=== PATIENT | female | born 1995 | race Caucasian/White ===

== ENCOUNTER 2020-04-06 12:07 | Outpatient (CLI) | payer OTHER, SELFPAY ==
[2020-04-06 12:42] LABS: Basophils # 0.1 10^3/uL (0.0-0.1); Basophils % 0.5 %; Eosinophils # 0.2 10^3/uL (0.0-0.8); Eosinophils % 1.2 %; Hematocrit 40.9 % (37.0-47.0); Hemoglobin 12.6 g/dL (11.5-15.3); Lymphocytes # 2.5 10^3/uL (0.8-4.8); Lymphocytes % 20.5 %; Mean Corpuscular HGB Conc 30.8 g/dL (30.0-36.0); Mean Corpuscular Hemoglobin 27.6 pg (28.0-34.0); Mean Corpuscular Volume 89.5 fL (81-99); Mean Platelet Volume 12.3 fL (7.4-10.4); Monocytes # 0.6 10^3/uL (0.2-0.9); Monocytes % 4.7 %; Neutrophils # 8.79 10^3/uL (1.8-7.7); Neutrophils % 72.9 %; Nucleated Red Blood Cells % 0 %; Platelet Count 145 10^3/cmm (130-400); Red Blood Count 4.57 10^6/uL (4.1-5.3); Red Cell Distribution Width 13.1 % (12.1-15.1); White Blood Count 12.1 10^3/uL (4.0-10.0)
[2020-04-06 13:09] LABS: Alanine Aminotransferase 9 U/L (0-33); Albumin Level 4.2 g/dL (3.5-5.2); Alkaline Phosphatase 65 IU/L (35-105); Anion Gap 15.7 (5-19); Aspartate Amino Transferase 13 U/L (0-32); Blood Urea Nitrogen 6 mg/dL (6-20); Calcium 8.7 mg/dL (8.5-10.5); Carbon Dioxide 25 mmol/L (22-29); Chloride 103 mmol/L (98-107); Globulin 3.4 g/dL (1.3-4.6); Glomerular Filtration Rate 122.8 mL/min (90-130); Glucose 90 mg/dL (65-115); Osmolality Calculated 285 mOsm/kg (285-295); Potassium 3.7 mmol/L (3.5-5.1); Sodium 140 mmol/L (136-145); Total Bilirubin 0.2 mg/dL (0.15-1.2); Total Protein 7.6 g/dL (6.6-8.7)
--- NOTE | 2020-04-06 14:00 | CT_ITS ---
WS: [id number] CT PARANASAL SINUSES HISTORY: CHRONIC SINUSITIS TECHNIQUE: Contiguous 2.5 mm axial images obtained through the sinuses. Images are reconstructed in s agittal and coronal planes. All CT scans at [facility] use at least one of these dose opt imization techniques: automated exposure control; mA and/or kV adjustment per patient size (includes targeted exams where dose is matched to clinical indication); or iterative reconstruction. DLP: 713.57 mGy.cm COMPARISON: None available. Frontal sinuses: Normal. Sphenoid sinus: Normal. Ethmoid sinuses: Very mild mucoperiosteal thickening in the anterior and posterior LEFT ethmoid air c ells. Maxillary sinus: Large mucous retention cyst in the RIGHT maxillary sinus measures 2.8 x 1.5 cm. Bila teral mucoperiosteal thickening otherwise, greatest in the LEFT maxillary sinus. No expansion of the bony antrum. Ostiomeatal unit: LEFT ostiomeatal unit obstruction with soft tissue. RIGHT ostiomeatal unit is paten t but there is a small amount mucoperiosteal thickening. 5 mm spurring to the LEFT from the nasal septum. CT/CT sinus wo con* [id number] IMPRESSION: 1. Obstructed LEFT ostiomeatal unit and partial obstruction of the RIGHT. 2. Moderate mucoperiosteal thickening circumferentially throughout the LEFT ma xillary sinus with a large RIGHT maxillary sinus mucous retention cyst. 3. No air-fluid levels. 4. LEFT ethmoid air cell disease.
[2020-04-06 14:32] LABS: Monoscreen Negative (Negative)
== END 2020-04-06 12:08 | disposition home or self-care (01) ==
LOC: RAD 12:10
PROVIDERS: PCP Nurse Practitioner Family; Visit Provider Nurse Practitioner Family
DX: J32.1 Chronic frontal sinusitis (principal); R53.83 Other fatigue; Z86.2 Personal history of diseases of the blood and blood-forming organs and certain disorders involving the immune mechanism; J02.9 Acute pharyngitis, unspecified; M27.40 Unspecified cyst of jaw
CPT/HCPCS: 36415; 70486; 80053; 84443; 85025; 86308; 87071; 87880

== ENCOUNTER 2020-05-12 02:09 | Emergency (ER) | payer OTHER, SELFPAY ==
[2020-05-12 02:17] VITALS: BP 116/77; PULSE 74; RESP 18; TEMP 36.4; O2SAT 99; BMI 18.6
--- NOTE | 2020-05-12 02:36 | ED_ITS ---
HPI - General Adult General: Chief complaint: General Medical Stated complaint: Pain in throat and ear Time Seen by Provider: 05/12/20 02:25 Source: patient Mode of arrival: ambulatory Limitations: no limitations History of Present Illness: HPI narrative: Suzy is a nice 24-year-old female comes in complaining of sore throat and ear pain. Patient states her symptoms are going on for the past 1 to 2 days. She is had recurrent bouts of sinusitis and has seen ENT for this but tonight she cannot get relief and that is why she came in. She denies any loss of sense of taste or loss of sense of smell. Patient denies any other complaints or concerns at this time. Associated symptoms: Deny chest pain, dyspnea, headache(s), nausea, rash, palpitations, syncope or vomiting Review of Systems Const: Denies: fever(s) Eyes: Denies: change in vision or blurry vision ENMT: Reports: throat pain and ear or mastoid pain; Denies: hoarseness or swelling of lips/tongue Card: Denies: chest pain, palpitations, syncope, pre-syncope or dyspnea on exertion Resp: Denies: dyspnea, productive cough, non-productive cough, wheezing, change in phlegm color or hemoptysis GI: Denies: abdominal pain, nausea, vomiting or diarrhea : Denies: flank pain, dysuria, urinary frequency or urinary urgency Musc: Denies: neck pain, back pain or extremity pain Skin/Breast: Denies: rash or pruritus Neuro: Denies: headache(s), numbness in extremities, weakness in extremities or dizziness Gatito/Lymph: Denies: easy bruising, easy bleeding, petechiae or purpura All/Imm: Denies: urticaria or throat swelling PFSH ED PFSH: Medical History History of ITP Sinusitis chronic, frontal Family History Mother Diabetes Father Diabetes Social History Smoking and tobacco status: never smoked Second hand smoke exposure: No Smoking risk assessment/counseling performed?: No Alcohol intake: never Desire information about alcohol rehabilitation?: No Counseling given: No Desire information about substance/drug rehabilitation?: No Counseling given: No Lives independently: Yes Household members: spouse Housing: House Marital status: Number of children: 1 Current occupational status: employed Current occupation: Respitory Therapist History of recent travel: No Sexually active: Yes Current gender identity: Female Female Reproductive History: Date of last menstrual period: 04/26/20 Para: 1 Physical Exam Const: COMMON NORMALS: no acute distress, patient oriented x3, no limitations and alert GENERAL APPEARANCE: cooperative HENMT: COMMON NORMALS: normocephalic, atraumatic, external ears normal, EAC's normal and Normal external nose present HEAD & SCALP: normal to inspection, normocephalic and atraumatic FACE & SINUS: normal facial exam and face symmetric NOSE: Normal external nose present and Normal nares present EXTERNAL EAR: Yes external ears normal EXTERNAL AUDITORY CANAL: EAC's normal TYMPANIC MEMBRANE: TM abnormal TM laterality: bilateral bulging and erythematous MOUTH: Normal oral and palatal mucosa present, lip normal and tongue normal Eye: COMMON NORMALS: Equal, round and reactive pupils present and conjunctivae normal GENERAL EYE: appearance normal, both eyes and all related structures ALIGNMENT: Yes alignment normal PERIORBITAL: periorbital findings normal EYELID: eyelids normal CONJUNCTIVA: Yes conjunctivae normal SCLERA: sclerae normal PUPIL: Yes Equal, round and reactive pupils present Neck/C-Spine: COMMON NORMALS: full ROM, no lymphadenopathy, supple, no meningeal signs and no JVD GENERAL: Yes normal visual inspection and Yes trachea midline Chest: COMMONS NORMALS: normal inspection of the chest and normal palpation of entire chest wall Resp: COMMON NORMALS: normal respiratory effort, No retractions, No use of accessory muscles and clear to auscultation bilaterally EFFORT & INSPECTION: Yes able to speak in complete sentences and Yes symmetric chest movement AUSCULTATION: clear to auscultation bilaterally, no crackles, no rales, no rhonchi and no wheezes Cardio: COMMON NORMALS: no JVD, regular rate, regular rhythm, S1 normal heart sound present and S2 normal heart sound present RATE: regular rate RHYTHM: regular rhythm HEART SOUNDS: S1 normal heart sound present, S2 normal heart sound present, no click, no gallops, no murmurs and no rubs GI: COMMON NORMALS: Soft to palpation and No hepatosplenomegaly present PALPATION: Yes Soft to palpation, No Tenderness to palpation present (GI), No Guarding due to palpation present (GI), No Rigid due to palpation, Yes No hepatosplenomegaly present, No Hernia present, No Palpable mass present and No Pulsatile mass present : COMMON NORMALS: Yes no CVA tenderness BLADDER/KIDNEY EXAM: Yes no CVA tenderness EXTERNAL FEMALE EXAM: No Hernia present Back/Pelvis: COMMON NORMALS: no CVA tenderness, thoracic and lumbar spine normal to inspection, no thoracic nor lumbar tenderness and thoraco-lumbar ROM normal Extremity: COMMON NORMALS: normal to inspection, full ROM, capillary refill normal, no joint enlargement, no clubbing, cyanosis or edema and no calf tenderness Neuro: COMMON NORMALS: patient oriented x3, CN's II-XII intact bilaterally, moves all extremities, no focal motor deficits and no sensory deficits noted SENSORIUM/ORIENTATION: Yes alert MENINGEAL SIGNS: Yes no meningeal signs SPEECH: speech normal Psych: COMMON NORMALS: mental status grossly normal, Normal thought process present, cooperative, normal affect, speech normal and activity/motor behavior normal SPEECH: Yes normal speech THOUGHT PROCESS: Normal thought process present Skin: COMMON NORMALS: no rashes or lesions noted, turgor normal, no jaundice, no petechiae and no mottling GENERAL SKIN EXAM: no rashes or lesions noted and turgor normal Course Vital Signs: Vital signs: Vital Signs Temperature 97.5 F L 05/12/20 02:17 Pulse Rate 77 05/12/20 02:51 Respiratory Rate 16 05/12/20 02:51 Blood Pressure 120/76 05/12/20 02:51 Pulse Oximetry 99 05/12/20 02:51 MDM - General Adult MDM Narrative: Medical decision making narrative: Patient declined any lab work here. I do not believe her ITP is likely contributing to her symptoms. She stated that Augmentin worked for her before as well as steroids. Patient was given a dose here and she agreed to follow-up with her ENT that she is previously established with. Discharge Plan Discharge Patient Disposition: Home Clinical Impression: Sinusitis chronic, frontal Otitis media Qualifiers: Otitis media type: suppurative Chronicity: acute Laterality: bilateral Recurrence: non-recurrent Spontaneous tympanic membrane rupture: without spontaneous rupture Qualified Code(s): H66.003 - Acute suppurative otitis media without spontaneous rupture of ear drum, bilateral Condition: Stable Prescriptions: New Augmentin 875-125 mg tablet 1 tab PO BID 10 Days Qty: 20 RF: 0 prednisone 10 mg tablets,dose pack See Rx Instructions .ROUTE .COMPLEX Qty: 21 RF: 0 No Action fluconazole [Diflucan] 150 mg tablet 150 mg PO Q3D Qty: 2 RF: 1 Lidocaine Viscous 2 % solution 1 applic MUCOUS MEM TID Qty: 100 RF: 1 Discharge Orders: Discharge Order (Routine); Ordered 05/12/20 Ordered By: Jayla Jennings Referrals: Jada White FNP [Primary Care Provider] - 1-3 days Discharge Diet: Advance as tolerated Discharge Activity: Increase activity as tolerated Patient Instructions: Pharyngitis (ED), Sinusitis (ED), Otitis Media (ED) Activity Restrictions/Additional Instructions: Please return to the ER immediately for any of the signs or symptoms listed on your discharge instruction sheets, worsening/changing of your symptoms, you are not getting better as quickly as expected, or for ANY other cause or concerns. You have declined more aggressive evaluation including lab work and CT scan. If you change your mind, your symptoms change or worsen or you get any sicker at all please return to the ER immediately for recheck. Be certain to take your medicines as I have prescribed and follow-up with your ear nose and throat doctor. Stay at home and quarantine yourself until we call you with the results of your COVID test. Discharge Date/Time: 05/12/20 02:54 Coding Level of Care Code ED Financial Aid Manager for Tameka Wiley
[2020-05-12] MEDS: HYDROcodone-acetaminophen 5-325 mg Tablet 1 TAB PO ×2 (02:49)
[2020-05-12] MEDS: amoxicillin-clav 875-125 mg Tablet 1 TAB PO (02:49)
[2020-05-12] MEDS: ondansetron 4 MG Tablet PO (02:49)
[2020-05-12] MEDS: predniSONE 20 mg Tablet 60 MG PO (02:49)
[2020-05-12 02:51] VITALS: BP 120/76; PULSE 77; RESP 16; O2SAT 99
--- NOTE | 2020-05-12 02:53 | PC.NURSE ---
PT refused COVID swab. Pt states she had one 3 days ago for work that was negative.
== END 2020-05-12 02:54 | disposition home or self-care (01) ==
PROVIDERS: Emergency Provider Emergency Medicine; PCP Nurse Practitioner Family
DX: J32.1 Chronic frontal sinusitis (principal); H66.003 Acute suppurative otitis media without spontaneous rupture of ear drum, bilateral
CPT/HCPCS: 12345; 99282; 99283; J7512; Q0162

== ENCOUNTER 2020-07-14 12:02 | Outpatient (CLI) | payer OTHER, SELFPAY ==
[2020-07-14 13:24] LABS: Basophils # 0.1 10^3/uL (0.0-0.1); Basophils % 0.5 %; Eosinophils # 0.1 10^3/uL (0.0-0.8); Hematocrit 37.7 % (37.0-47.0); Lymphocytes # 2.3 10^3/uL (0.8-4.8); Lymphocytes % 16.9 %; Mean Corpuscular HGB Conc 31.8 g/dL (30.0-36.0); Mean Corpuscular Hemoglobin 27.5 pg (28.0-34.0); Mean Corpuscular Volume 86.5 fL (81-99); Mean Platelet Volume 13.2 fL (7.4-10.4); Monocytes # 0.8 10^3/uL (0.2-0.9); Monocytes % 5.9 %; Neutrophils # 10.13 10^3/uL (1.8-7.7); Neutrophils % 75.4 %; Nucleated Red Blood Cells % 0 %; Platelet Count 108 10^3/cmm (130-400); Red Blood Count 4.36 10^6/uL (4.1-5.3); Red Cell Distribution Width 12.3 % (12.1-15.1); White Blood Count 13.5 10^3/uL (4.0-10.0)
[2020-07-14 13:43] LABS: Alanine Aminotransferase 9 U/L (0-33); Albumin Level 3.9 g/dL (3.5-5.2); Alkaline Phosphatase 72 IU/L (35-105); Anion Gap 10.7 (5-19); Aspartate Amino Transferase 13 U/L (0-32); Blood Urea Nitrogen 7 mg/dL (6-20); C Reactive Protein 4.6 mg/L (0.0-4.9); Carbon Dioxide 31 mmol/L (22-29); Chloride 95 mmol/L (98-107); Globulin 3.7 g/dL (1.3-4.6); Glomerular Filtration Rate 121.8 mL/min (90-130); Glucose 84 mg/dL (65-115); Osmolality Calculated 273 mOsm/kg (285-295); Potassium 3.7 mmol/L (3.5-5.1); Sodium 133 mmol/L (136-145); Total Bilirubin 0.2 mg/dL (0.15-1.2); Total Protein 7.6 g/dL (6.6-8.7)
[2020-07-14 13:46] LABS: Slide Review Slide Review Perform
[2020-07-14 14:28] LABS: Erythrocyte Sedimentation Rate 28 mm/hr (0-15)
[2020-07-15 10:18] LABS: Anti-streptolysin O <50 IU/mL (<200)
[2020-07-15 12:28] LABS: Lyme AB Screen <0.90 index
[2020-07-16 10:04] LABS: COMPLEMENT COMPONENT C3C 162 mg/dL (83-193); COMPLEMENT COMPONENT C4C 30 mg/dL (15-57)
[2020-07-16 12:38] LABS: CENTROMERE B ANTIBODY <1.0 NEG AI (<1.0 NEG); JO-1 ANTIBODY <1.0 NEG AI (<1.0 NEG); RNP ANTIBODY <1.0 NEG AI (<1.0 NEG); SCL-70 ANTIBODY <1.0 NEG AI (<1.0 NEG); SJOGREN'S ANTIBODY (SS-A) <1.0 NEG AI (<1.0 NEG); SM ANTIBODY <1.0 NEG AI (<1.0 NEG); SS-B <1.0 NEG AI (<1.0 NEG)
[2020-07-16 13:07] LABS: Complement Total (CH50) >60 U/mL (31-60)
[2020-07-16 13:08] LABS: COMPLEMENT, TOTAL (CH50) >60 U/mL (31-60)
[2020-07-16 15:09] LABS: ANA SCREEN, IFA NEGATIVE (NEGATIVE)
[2020-07-16 15:39] LABS: THYROID PEROXIDASE ANTIBODIES <1 IU/mL (<9)
[2020-07-17 16:23] LABS: E. Chaffeensis AB IGG <1:64; E. Chaffeensis AB IGM <1:20; RMSF IGG NOT DETECTED; RMSF IGM NOT DETECTED
[2020-07-19 21:29] LABS: ANCA Interp Negative (Negative)
[2020-07-21 02:37] LABS: DNA AB (DS) CRITHIDIA,IFA NEGATIVE (NEGATIVE)
== END 2020-07-14 12:03 | disposition home or self-care (01) ==
PROVIDERS: Internal Medicine; PCP Nurse Practitioner Family; Visit Provider Nurse Practitioner Family
DX: I77.6 Arteritis, unspecified (principal); Z86.2 Personal history of diseases of the blood and blood-forming organs and certain disorders involving the immune mechanism; J04.0 Acute laryngitis; R21 Rash and other nonspecific skin eruption
CPT/HCPCS: 36415; 80053; 83516; 85025; 85651; 86060; 86140; 86162; 86618; 86666; 86757; 88304

== ENCOUNTER 2020-07-14 15:57 | Outpatient (CLI) | payer OTHER, SELFPAY ==
--- NOTE | 2020-07-14 16:13 | XRR_ITS ---
PROCEDURE INFORMATION: Exam: XR Chest, 2 Views Exam date and time: 07/14/2020 4:29 PM Age: 25 years old Clinical indication: Condition or disease; Other: Arteritis; Prior surgery; Surgery type: Breast and clavicle; Additional info: I77.6 -arteritis , unspecified TECHNIQUE: Imaging protocol: XR of the chest Views: 2 views. COMPARISON: No relevant prior studies available. FINDINGS: Lungs: Unremarkable. No consolidation. Pleural space: Unremarkable. No pleural effusion. No pneumothorax. Heart/Mediastinum: Unremarkable. No cardiomegaly. Bones/joints: Unremarkable. Bilateral breast implants are present. XR/XR chest 2V* [id number] IMPRESSION: No acute findings.
== END 2020-07-14 15:58 | disposition home or self-care (01) ==
PROVIDERS: PCP Nurse Practitioner Family; Visit Provider Internal Medicine
DX: I77.6 Arteritis, unspecified (principal)
CPT/HCPCS: 71046

== ENCOUNTER → 2020-08-02 13:58 | Outpatient (BNVA) | payer OTHER, SELFPAY | PROVIDERS: PCP Nurse Practitioner Family; Visit Provider Internal Medicine | DX: Z86.2 Personal history of diseases of the blood and blood-forming organs and certain disorders involving the immune mechanism (principal); I77.6 Arteritis, unspecified; Z11.59 Encounter for screening for other viral diseases; Z11.1 Encounter for screening for respiratory tuberculosis; R21 Rash and other nonspecific skin eruption; M25.50 Pain in unspecified joint; Z79.52 Long term (current) use of systemic steroids | CPT/HCPCS: 99204 ==

== ENCOUNTER 2020-08-03 14:41 | Outpatient (CLI) | payer OTHER, SELFPAY ==
--- NOTE | 2020-08-03 15:07 | XR_ITS ---
WS: [id number] Exam: XR foot RT 2V [id number] Date/Time of Exam: 08/03/2020 3:12 PM Reason For Exam: M25.50 - Pain in unspecified joint Findings: The foot was examined in multiple views and reveals no fractures or displacements of bone. No bony a nomalies are noted. The bony elements are in adequate alignment. The joint spaces are smooth and eq uidistant. XR/XR foot RT 2V [id number] IMPRESSION: Negative right foot.
--- NOTE | 2020-08-03 15:07 | XR_ITS ---
WS: [id number] Exam: XR foot LT 2V [id number] Date/Time of Exam: 08/03/2020 3:12 PM Reason For Exam: M25.50 - Pain in unspecified joint Findings: The foot was examined in multiple views and reveals no fractures or displacements of bone. No bony a nomalies are noted. The bony elements are in adequate alignment. The joint spaces are smooth and eq uidistant. XR/XR foot LT 2V [id number] IMPRESSION: Negative left foot.
[2020-08-03 16:19] LABS: Basophils # 0.1 10^3/uL (0.0-0.1); Basophils % 0.5 %; Eosinophils # 0.2 10^3/uL (0.0-0.8); Eosinophils % 1.7 %; Hematocrit 42.1 % (37.0-47.0); Hemoglobin 13.1 g/dL (11.5-15.3); Lymphocytes # 2.8 10^3/uL (0.8-4.8); Lymphocytes % 20.9 %; Mean Corpuscular HGB Conc 31.1 g/dL (30.0-36.0); Mean Corpuscular Hemoglobin 27.1 pg (28.0-34.0); Mean Corpuscular Volume 87.2 fL (81-99); Mean Platelet Volume 11.6 fL (7.4-10.4); Monocytes # 0.6 10^3/uL (0.2-0.9); Monocytes % 4.3 %; Neutrophils # 9.48 10^3/uL (1.8-7.7); Neutrophils % 72.3 %; Nucleated Red Blood Cells % 0 %; Platelet Count 228 10^3/cmm (130-400); Red Blood Count 4.83 10^6/uL (4.1-5.3); Red Cell Distribution Width 12.3 % (12.1-15.1); White Blood Count 13.1 10^3/uL (4.0-10.0)
[2020-08-03 16:42] LABS: Alanine Aminotransferase 8 U/L (0-33); Alkaline Phosphatase 88 IU/L (35-105); Anion Gap 11.4 (5-19); Aspartate Amino Transferase 15 U/L (0-32); Blood Urea Nitrogen 8 mg/dL (6-20); C Reactive Protein 4.7 mg/L (0.0-4.9); Calcium 9.5 mg/dL (8.5-10.5); Carbon Dioxide 31 mmol/L (22-29); Chloride 97 mmol/L (98-107); Complement C3 175 mg/dL (90-180); Globulin 4.2 g/dL (1.3-4.6); Glomerular Filtration Rate 150.3 mL/min (90-130); Glucose 122 mg/dL (65-115); Osmolality Calculated 282 mOsm/kg (285-295); Potassium 3.4 mmol/L (3.5-5.1); Sodium 136 mmol/L (136-145); Total Bilirubin 0.2 mg/dL (0.15-1.2); Total Protein 8.2 g/dL (6.6-8.7)
[2020-08-03 16:45] LABS: Add Urine Microscopic? YES; Bilirubin Urine Neg (Negative); Blood Urine 2+ (Negative); Glucose Urine UA Norm (Normal); Ketones Urine Negative (Negative); Leukocyte Esterase Urine Negative (Negative); Nitrate Urine Negative (Negative); Protein Urine Neg (Negative); Urine Appearance Clear (CLEAR); Urine Color Yellow (Yellow); Urobilinogen Urine Norm (Negative); pH Urine 5 (5-7)
[2020-08-03 16:46] LABS: Add Urine Culture? No; Bacteria Urine TRACE /hpf; Mucus Urine 1+ /hpf; RBC Urine 0-4 /hpf (0-2); Squamous Epithelial Cell Urine 0-4 /hpf (0-5); WBC Urine 0-4 /hpf (0-5)
[2020-08-03 16:59] LABS: Erythrocyte Sedimentation Rate 45 mm/hr (0-15)
[2020-08-03 17:40] LABS: Hepatitis B Core AB, Total Non-Reactive (Nonreactive); Hepatitis B Surface Antigen Non-Reactive (Nonreactive); Hepatitis C Virus Antibody Non-Reactive (Nonreactive)
[2020-08-04 11:59] LABS: COMPLEMENT, TOTAL (CH50) >60 U/mL (31-60)
[2020-08-04 14:27] LABS: COMPLEMENT COMPONENT C3C 190 mg/dL (83-193); COMPLEMENT COMPONENT C4C 33 mg/dL (15-57)
[2020-08-04 16:28] LABS: CENTROMERE B ANTIBODY <1.0 NEG AI (<1.0 NEG); JO-1 ANTIBODY <1.0 NEG AI (<1.0 NEG); RNP ANTIBODY <1.0 NEG AI (<1.0 NEG); SCL-70 ANTIBODY <1.0 NEG AI (<1.0 NEG); SJOGREN'S ANTIBODY (SS-A) <1.0 NEG AI (<1.0 NEG); SM ANTIBODY <1.0 NEG AI (<1.0 NEG); SS-B <1.0 NEG AI (<1.0 NEG)
[2020-08-05 13:43] LABS: ANA SCREEN, IFA NEGATIVE (NEGATIVE)
[2020-08-05 14:14] LABS: THYROID PEROXIDASE ANTIBODIES <1 IU/mL (<9)
[2020-08-05 14:43] LABS: Quantiferon Mitogen 9.59 IU/mL; Quantiferon Nil 0.02 IU/mL; Quantiferon Plus TB1 0.01 IU/mL; Quantiferon TB Gold NEGATIVE (NEGATIVE)
[2020-08-08 02:32] LABS: Glucose-6-Phosphate Dehydrogen 20.5 U/g Hgb (7.0-20.5)
[2020-08-08 12:03] LABS: ANCA Interp Negative (Negative)
[2020-08-09 00:33] LABS: DNA AB (DS) CRITHIDIA,IFA NEGATIVE (NEGATIVE)
== END 2020-08-03 14:42 | disposition home or self-care (01) ==
PROVIDERS: PCP Nurse Practitioner Family; Visit Provider Internal Medicine
DX: M25.50 Pain in unspecified joint (principal); I77.6 Arteritis, unspecified; Z51.81 Encounter for therapeutic drug level monitoring; D86.9 Sarcoidosis, unspecified; R21 Rash and other nonspecific skin eruption; M32.9 Systemic lupus erythematosus, unspecified
CPT/HCPCS: 36415; 73620; 80053; 81001; 81401; 82955; 83516; 85025; 85651; 86140; 86160; 86480; 86704; 86803; 87340

== ENCOUNTER → 2020-11-01 16:18 | Outpatient (BNVA) | payer OTHER, SELFPAY | PROVIDERS: PCP Nurse Practitioner Family; Visit Provider Nurse Practitioner Family | DX: R53.1 Weakness (principal); R22.1 Localized swelling, mass and lump, neck; J01.90 Acute sinusitis, unspecified | CPT/HCPCS: 36416; 82962; 87070 ==